=== PATIENT | female | born 1945 | race Caucasian/White ===

== ENCOUNTER → 2016-05-09 | Outpatient (CLI) | payer OTHER ==
[~2016-05-09] MED LIST: ASPI81TA28 PO; CHOL200027 PO; CRS10 PO; CZR50 PO; EYE HEALTH PO; HYDR12.55 PO; LUTE1CAP4 PO; METO50TA7 PO; MULT-506 PO; OMEG10007 PO; POTA1080 PO; TAMO20TA47 PO
--- NOTE | 2016-05-09 14:25 | MAMMOGRAPHY REPORT ---
BILATERAL DIGITAL DIAGNOSTIC MAMMOGRAM TOMOSYNTHESIS WITH CAD: 05/09/2016 CLINICAL HISTORY: 70-year-old woman with a personal history of left breast cancer status post lumpec jasvir 11/26/2014 and radiation therapy presents for annual bilateral mammography and repeat evaluatio n of the post surgical changes in the left breast. TECHNIQUE: Bilateral CC and MLO 2-D digital and tomosynthesis images, spot magnification left CC and ML views were obtained. Current study was also evaluated with a Computer Aided Detection (CAD) sys tem. COMPARISON: Comparison is made to exams dated: 11/04/2015 mammogram, 04/29/2015 mammogram, 10/25/2014 ma mmogram, and 10/25/2014 ultrasound biopsy - [facility]. BREAST COMPOSITION: There are scattered areas of fibroglandular density in both breasts. FINDINGS: There is expected architectural distortion and suspected surgical clips in the 12:00 poste rior left breast, at the site of prior lumpectomy. There are a few stable benign-appearing rim calc ifications and punctate microcalcifications in the breasts. No new suspicious mass, architectural d istortion or cluster of microcalcifications is seen. IMPRESSION: ACR BI-RADS CATEGORY 2: BENIGN Stable mammographic appearance of the breasts, including posttreatment changes within the left breas t. There is no mammographic evidence of malignancy. A 1 year screening mammogram is recommended. T he patient has been verbally notified of the results. Approximately 10% of breast cancers are not detected with mammography. A negative mammographic repor t should not delay biopsy if a clinically suggestive mass is present. Edith Calix M.D. ay/:05/09/2016 09:47:57 Pot Maker: Yenifer TEJADA(Karen)(Jesenia), [facility] letter sent: Normal 04/23 BI-RADS Code: ACR BI-RADS Category 2: Benign
== END | disposition home or self-care (01) ==
LOC: C.MAMM 08:19
PROVIDERS: ATTEND Surgery
DX: Z08 Encounter for follow-up examination after completed treatment for malignant neoplasm (principal); Z85.3 Personal history of malignant neoplasm of breast; Z92.3 Personal history of irradiation

== ENCOUNTER → 2016-10-17 | Outpatient (CLI) | payer OTHER ==
[2016-10-17 14:13] VITALS: BP 113/74; PULSE 73; TEMP 36.8; O2SAT 97
--- NOTE | 2016-10-17 15:06 | Radiation Oncology Follow-Up ---
Radiation Oncology Follow-Up Date of Visit Oct 17, 2016. Reason For Visit Annual follow-up Radiation Completion Date finished 01-25-2015 using accelerated partial breast treatment Diagnosis (1) Breast cancer Status: Resolved Onset Date: 10/25/2014 Histology Subtype: ductal Stage: l (A) Permanent Comment: Left breast, invasive ductal carcinoma, grade 1, no LVSI, ER /OK positive, Her2 negative, [id number], stage IA Ultrasound-guided biopsy 10/25/2014 Status post lumpectomy and sentinel lymph node biopsy 11/26/2014 BRCA testing negative Status post completion of radiation therapy 01/25/2015 received 3850 cGy utilizing accelerated partial breast treatment. Last Edited By: Mallika Multani on Jan 28, 2015 14:40 History of Present Illness Ms. Lucia is a 70-year-old postmenopausal female who recently presented with an abnormality found on mammography. She recently had a mammogram completed on 10/15/2014 which revealed a 5 mm isoechoic non-circumscribed mass in the 11 o'clock position in the left breast. Dedicated ultrasonography was completed with biopsy on 10/25/2014 and revealed grade 1 invasive ductal carcinoma with no lymphovascular space invasion. The tumor was estrogen receptor and progesterone receptor positive and HER-2 negative. The patient had BRCA testing completed on 10/25/2014 which was negative. She met with Dr. Brown and elected for lumpectomy with adjuvant radiation therapy. She underwent wide local excision and sentinel lymph node biopsy on 11/26/2014 which revealed no residual carcinoma in the left breast a negative sentinel lymph node. Dr. Brown did discuss treatment options with the patient and recommended adjuvant radiation therapy. At this point they have not made a decision about anti- hormonal therapy is the patient's sister to have issues with the medication and did have a stroke. We are now seeing the patient in consultation for discussion of adjuvant radiation therapy. She return to our office for CT simulation and was found to be a candidate for accelerated partial breast treatment. Radiation was completed 01/25/2015 she received 3850 cGy. Interim History She's been doing well over this past year. She denies any changes to her breast. She has noted no masses or tenderness and no change of the axilla. She 's had no swelling of her arm. She continues on tamoxifen. She does feel that since starting medication she has flushing of the face and sensitivity of the skin of her face. We did discuss skin products. She is using oil of olay. We discussed that some products may cause skin irritation. In starting the tamoxifen she notes very mild and slight vaginal discharge. This is clear. There is no vaginal bleeding. We discussed at her last visit that she should' ve follow-up with gynecology or her PCP. She stated that she has an appointment to see her primary care physician in November and will discuss this with her. Allergies Coded Allergies: Raloxifene (Unverified Allergy, Unknown, HIVES, 05/09/14) Sulfamethoxazole w/Trimethoprim (Unverified Allergy, Unknown, RASH, ) Home Medications Scheduled Aspirin (Aspirin Ec), 81 MG PO DAILY Cholecalciferol (Vitamin D-3), 1 TAB PO DAILY Fish Oil (Casco-3), 1 CAP PO DAILY Hydrochlorothiazide (Hydrochlorothiazide), 1 TAB PO DAILY Losartan Potassium (Cozaar *), 100 MG PO QAM Lutein (Hm Lutein), 1 CAP PO DAILY Metoprolol Succ (Toprol Xl) (Toprol-Xl), 50 MG PO HS Multivitamin (Multivitamin), 1 TAB PO DAILY Potassium Citrate (Urocit-K), 15 MEQ PO DAILY Rosuvastatin Calcium (Crestor *), 10 MG PO QAM Tamoxifen (Nolvadex), 20 MG PO DAILY [Eye Health ], 2 CAP PO DAILY Review of Systems Gastrointestinal: Symptoms: WNL Oral: Symptoms: No Problems Respiratory: Symptoms: WNL Urinary: Symptoms: WNL Skin: Other Skin Symptoms: "redness in face " and rest of skin is sensative " Breast: Right Upper Arm Measurement: 31.5 Right Mid Arm Measurement: 25.0 Right Wrist Measurement: 16.5 Left Upper Arm Measurement: 31.0 Left Mid Arm Measurement: 24.0 Left Wrist Measurement: 16.0 Arm Dominence: Right Patient Cosmetic Evaluation: Excellent Staff Cosmetic Evalaluation: Excellent Physical Exam Vital Signs Date Time Temp Pulse Resp B/P (MAP) Pulse Ox O2 Delivery O2 Flow Rate FiO2 10/17/16 14:13 36.8 73 16 113/74 97 Pain: Side: Bilateral Patient Pain Scale: 0 - 10 Initial Pain Intensity: 0.0 Fatigue: None General Appearance: no apparent distress Eyes: normal inspection, EOMI ENT: normal ENT inspection, hearing grossly normal Neck: no adenopathy, thyroid normal Respiratory/Chest: lungs clear, no respiratory distress, no accessory muscle use Breast: Breast examination reveals well-healed incisions of the left breast. There is dense fibrous tissue especially noted above the incision. There are no masses or tenderness and no axillary adenopathy. She has no telangiectasis. There are no skin retractions or nipple changes. Using the [place] score cosmesis she has a good outcome. The right breast showed no masses or tenderness and no axillary adenopathy. Cardiovascular: regular rate, rhythm, no gallop, no murmur Abdomen: non tender, soft Extremities: no pedal edema Neurologic/Psychiatric: no motor/sensory deficits, alert, normal mood/affect Skin: warm/dry Additional Studies Patient: DASHA LUCIA [facility] Rec: [id number] Address1: [facility] [address] [facility] Address2: Acct ID: [id number] Date: 1945 Sex: F Ref Phy: Kennedy Brown M.D. Att Phy: Mallika Multani PA-C Rona Phy: Suleman Kraft M.D. Inter Phy: Edith Calix MD [facility] Zip: [place] [address] SC: [id number] Report #: [id number] Core Blower Operator: CHAO Diagnosis: 6 MONTH F/U BILATERAL Service Date: 05/09/16 MNE: [id number] Ordering Dr: Mallika Multani PA-C CC: Mallika Multani PA-C CONF: DICTATED BY: Edith Calix MD MAMMOGRAPHY REPORT BILATERAL DIGITAL DIAGNOSTIC MAMMOGRAM TOMOSYNTHESIS WITH CAD: 05/09/2016 CLINICAL HISTORY: 70-year-old woman with a personal history of left breast cancer status post lumpectomy 11/26/2014 and radiation therapy presents for annual bilateral mammography and repeat evaluation of the post surgical changes in the left breast. TECHNIQUE: Bilateral CC and MLO 2-D digital and tomosynthesis images, spot magnification left CC and ML views were obtained. Current study was also evaluated with a Computer Aided Detection (CAD) system. COMPARISON: Comparison is made to exams dated: 11/04/2015 mammogram, 04/29/2015 mammogram, 10/25/2014 mammogram, and 10/25/2014 ultrasound biopsy - [facility]. BREAST COMPOSITION: There are scattered areas of fibroglandular density in both breasts. FINDINGS: There is expected architectural distortion and suspected surgical clips in the 12:00 posterior left breast, at the site of prior lumpectomy. There are a few stable benign-appearing rim calcifications and punctate microcalcifications in the breasts. No new suspicious mass, architectural distortion or cluster of microcalcifications is seen. IMPRESSION: ACR BI-RADS CATEGORY 2: BENIGN Stable mammographic appearance of the breasts, including posttreatment changes within the left breast. There is no mammographic evidence of malignancy. A 1 year screening mammogram is recommended. The patient has been verbally notified of the results. Approximately 10% of breast cancers are not detected with mammography. A negative mammographic report should not delay biopsy if a clinically suggestive mass is present. Edith Calix M.D. ay/:05/09/2016 09:47:57 [employer] Range Feeder: Yenifer TEJADA(Karen)(Jesenia), [facility] letter sent: Normal 1/2 BI-RADS Code: ACR BI-RADS Category 2: Benign Dictated by: Edith Calix MD Signed by: Edith Calix MD Assessment & Plan Plan: Continue annual mammography. Continue regular follow-up with Dr. Brown. She continues on tamoxifen. She'll be seeing in November. She is due for pelvic examination and Pap smear. Of asked her to discuss with her the vaginal discharge. She is aware of the potential side effects of tamoxifen. We discussed that she may need to have an ultrasound to further investigate the vaginal discharge. We asked her to return to our office in 1 year. She may call if she has D questions or concerns. She was also instructed on gentle massage that may help the area of fibrous tissue. Total Time In Follow-Up I spent 20 minutes speaking to the patient and performing examination. I spent 15 minutes reviewing information and completing this note. Copy To Kennedy Brown M.D.; Suleman Kraft M.D. Problem Qualifiers (1) Breast cancer: Breast location: upper inner quadrant of breast Estrogen receptor status: positive Patient sex: female Laterality: left Qualified Codes: C50.212 - Malignant neoplasm of upper-inner quadrant of left female breast; Z17.0 - Estrogen receptor positive status [ER+]
== END | disposition home or self-care (01) ==
LOC: C.ONC 13:57
PROVIDERS: ATTEND Physician Assistant Medical
DX: Z08 Encounter for follow-up examination after completed treatment for malignant neoplasm (principal); Z92.3 Personal history of irradiation; Z85.3 Personal history of malignant neoplasm of breast

== ENCOUNTER → 2016-12-27 | Outpatient (CLI) | payer OTHER ==
--- NOTE | 2016-12-27 09:25 | DIAGNOSTIC IMAGING REPORT ---
ABDOMEN LIMITED (US) HISTORY: Pain. Nausea. OTHER SPECIFIED ABD FINDINGS OF BLOOD CHEMISTRY. COMPARISON: 03/08/2014 FINDINGS: Pancreas: The pancreas demonstrates a normal echotexture. Liver: Fatty infiltration. Gallbladder: No gallbladder wall thickening. No gallstones. CBD: 3 mm Right kidney: 3 cm cyst slightly minimal increase in the prior study. IMPRESSION: Fatty infiltration of liver. Right renal cyst. Otherwise normal study. The above report was generated using voice recognition software. It may contain grammatical, syntax or spelling errors. Electronically signed by: Alberto Keith M.D. 12/27/2016 9:23 AM Dictated Date/Time: 12/27/2016 9:21 AM
== END | disposition home or self-care (01) ==
LOC: C.ULTR 08:47
PROVIDERS: ATTEND Internal Medicine Gastroenterology
DX: R79.89 Other specified abnormal findings of blood chemistry (principal); N20.0 Calculus of kidney; N29 Other disorders of kidney and ureter in diseases classified elsewhere

== ENCOUNTER → 2016-12-27 | Outpatient (CLI) | payer OTHER ==
--- NOTE | 2016-12-27 09:28 | DIAGNOSTIC IMAGING REPORT ---
KUB CLINICAL HISTORY: N20.0 [id number] nephrocalcinosis COMPARISON STUDY: 03/26/2015 Findings: Unchanging multiple left renal calcifications. The 10th Small lower pole right renal calcifications. Several pelvic calcifications unchanged. Status post right hip arthroplasty. IMPRESSION: 1. Bilateral renal nephrocalcinosis. 2. These are unchanged in the left. 3. 2 small calcifications lower aspect right kidney potentially are new The above report was generated using voice recognition software. It may contain grammatical, syntax or spelling errors. Electronically signed by: Alberto Keith M.D. 12/27/2016 9:27 AM Dictated Date/Time: 12/27/2016 9:24 AM
== END | disposition home or self-care (01) ==
LOC: C.RAD 08:52
PROVIDERS: ATTEND Urology
DX: N20.0 Calculus of kidney (principal); N29 Other disorders of kidney and ureter in diseases classified elsewhere

== ENCOUNTER → 2017-07-30 | Outpatient (CLI) | payer OTHER ==
[~2017-07-30] MED LIST changes: -METO50TA7 PO; +METO50TA8 PO; -TAMO20TA47 PO; +TAMO20TA9 PO
--- NOTE | 2017-08-01 07:56 | MAMMOGRAPHY REPORT ---
BILATERAL DIGITAL SCREENING MAMMOGRAM TOMOSYNTHESIS WITH CAD: 07/30/2017 CLINICAL HISTORY: Routine screening. Patient has no complaints. TECHNIQUE: Breast tomosynthesis in addition to standard 2D mammography was performed. Current study was also evaluated with a Computer Aided Detection (CAD) system. COMPARISON: Comparison is made to exams dated: 05/09/2016 mammogram, 11/04/2015 mammogram, 04/29/2015 ma mmogram, 10/25/2014 mammogram, 10/25/2014 ultrasound biopsy, and 10/15/2014 ultrasound - [facility]. BREAST COMPOSITION: The tissue of both breasts is heterogeneously dense, which may obscure small mas ses. FINDINGS: There are diffuse scattered and grouped microcalcifications in the right breast, stable com pared to prior exams. Expected architectural distortion and surgical clips in the 12:00 posterior le ft breast, at the site of prior lumpectomy. A linear scar marker overlies the superior left breast. No new suspicious mass, architectural distortion or cluster of new, suspicious microcalcifications i s seen. IMPRESSION: ACR BI-RADS CATEGORY 1: NEGATIVE There is no mammographic evidence of malignancy. A 1 year screening mammogram is recommended. The pa tient will receive written notification of the results. Approximately 10% of breast cancers are not detected with mammography. A negative mammographic report should not delay biopsy if a clinically suggestive mass is present. Edith Calix M.D. ay/:07/30/2017 16:52:13 Buttonhole Facer: Janette MILLER)(Jesenia), [facility] letter sent: Normal 1/2 BI-RADS Code: ACR BI-RADS Category 1: Negative
== END | disposition home or self-care (01) ==
LOC: C.MAMM 16:22
PROVIDERS: ATTEND Internal Medicine
DX: Z12.31 Encounter for screening mammogram for malignant neoplasm of breast (principal); Z85.3 Personal history of malignant neoplasm of breast

== ENCOUNTER 2024-07-15 19:55 | Observation (INO) ==
--- NOTE | 2024-07-15 20:21 | Emergency Department Note ---
Impression & Plan Acute hypoxic respiratory failure, Shortness of breath, Atelectasis ED Provider Note NAME: DASHA LUCIA AGE: 78 SEX: F : 1945 ARRIVES VIA: Walk-In INFORMANT: Patient ED PROVIDER(S): Juan Carlos Mathur DO CHIEF COMPLAINT: Shortness of breath HPI: Patient is a 78-year-old male with a past medical history of hypertension, hyperlipidemia, breast cancer who just had a right shoulder surgery on Saturday who presents ER for shortness of breath which has been present since the surgery. Patient presents tonight as he got significantly worse today. She denies any cough or congestion. No belly pain. No nausea, vomiting, or diarrhea. No dysuria, urgency, or frequency. No other exacerbating or remitting factors. ADDITIONAL HISTORY OBTAINED: Son is present at bedside and provides additional history and notes that this got significantly worse today. Chronic Medical/Social Conditions Affecting Care: Per HPI PAST MEDICAL HISTORY:See Below PAST SURGICAL HISTORY:See Below FAMILY HISTORY:See Below SOCIAL HISTORY:See Below HOME MEDICATIONS:See Below ALLERGIES:See Below VITALS:See Below PHYSICAL EXAMINATION: GENERAL: Sitting up in bed, alert, dyspneic with conversation, disheveled EYE EXAM: normal conjunctiva. PERRL and EOM's grossly intact. OROPHARYNX: no exudate, no erythema, lips, buccal mucosa, and tongue normal and mucous membranes are moist NECK: supple, no nuchal rigidity, no adenopathy, non-tender LUNGS: Clear to auscultation. Normal chest wall mechanics HEART: no murmurs, S1 normal and S2 normal ABDOMEN: abdomen soft, non-tender, normo-active bowel sounds, no masses, no rebound or guarding. BACK: Back is symmetrical on inspection and there is no deformity, no midline tenderness, no CVA tenderness. SKIN: no rashes and no bruising UPPER EXTREMITIES: Right upper extremity is in shoulder immobilizer. Radial pulse are 2 out of 4 bilaterally LOWER EXTREMITIES: No pitting edema. Calves equal bilaterally NEURO EXAM: Normal sensorium, cranial nerves II-XII grossly intact, normal speech, no gross weakness of arms, no gross weakness of legs. MEDICAL DECISION MAKING: Patient is a 78-year-old female who presents ER for the above-stated complaint. IV was established and blood work was obtained. No history of asthma or COPD. Shortness of breath has been present since Saturday when she had a right shoulder surgery. Labs show no significant leukocytosis or anemia. INR unremarkable. BMP with mild hyponatremia at 134. LFTs and bilirubin was unremarkable. Mag was normal. Troponin was negative with symptoms have been present for greater than 6 hours not indicative of ACS. EKG was unremarkable. Patient was given neb treatments and placed on 2 L nasal cannula due to hypoxia at 88% on room air. Chest x-ray with subtle opacities at the bases and CT angio of the chest shows no PEs with atelectasis and no focal pneumonia. Patient was updated bedside discussed with the hospitalist admitted for further workup. Consults/Care Managements Discussions: Per [facility] Triage Nursing notes reviewed. Limited review of prior medical records performed Vital Signs: reviewed and remarkable for hypoxic Differential diagnosis: Differential diagnoses includes but is not limited to pneumonia, bronchitis, COPD/Asthma exacerbation, pneumothorax, pulmonary embolism, congestive heart failure, acute coronary syndrome ER treatment provided: See below Diagnostics interpreted by me include EKG and cardiac monitoring as listed below: -Cardiac Monitoring: An order was placed for continuous cardiac monitoring. The monitor shows a rate of 90 with sinus rhythm. -ECG: Sinus rhythm rate of 96 Normal axis No PVCs QTc 454 -Laboratory studies:Interpreted by me as stated above in MDM and shown below. Imaging studies: Xrays: As interpreted by me: Portable AP upright 1 view of the chest shows no focal infiltrate CTs show: CT angio of the chest shows no PEs Procedures:none Critical Care: I have personally spent 35 minutes of critical care time in the direct management of this patient. This includes bedside care, interpretation of diagnostic studies, and testing, discussion with consultants, patient, and family members, and other required patient management activities. This 35 minutes is in excess of all separately billable procedures. Past Med/Surg History Problem List (Updated 07/15/24 @ 22:56 by Juan Carlos Mathur DO) Atelectasis (Acute) Shortness of breath (Acute) Acute hypoxic respiratory failure (Acute) Acute hypoxic respiratory failure Aspiration pneumonia Status post reverse total replacement of right shoulder (~06/2024) Encounter for pre-operative examination Rotator cuff arthropathy of right shoulder Leg pain, left (Acute) Left leg swelling (Acute) Abdominal pain, left lower quadrant (Acute) Hyperlipemia (Chronic) Hypertension (Chronic) Medical History Arthritis Hearing deficit mild History of COVID-2019 - symptoms resolved History of kidney stones hx of and at present - no current symptoms HTN (hypertension) HX: breast cancer 2015 > stage 1 per pt > sx and radiation > no current issues Hyperlipemia Kidney cysts right Medullary sponge kidney Follows with urology Protruded lumbar disc Surgical History History of bunionectomy History of cataract surgery bilat History of colonoscopy History of lithotripsy History of right hip replacement History of tonsillectomy Hx of lumpectomy left with marker Family History Other No significant family history Social History Smoking Status: Former smoker Second Hand Exposure: No; Do You Dip or Chew Tobacco: No; Hx Alcohol Use: Yes Alcohol type: wine Hx Substance Use: No Preferred Language: Azeri Communication Ability: Effective Drum Puller Required: No Beliefs That Will Affect Care: None Current Living Situation: Alone Feels Safe at Home: Yes Assistive Devices: Glasses Allergies Allergies Allergy/AdvReac Type Severity Reaction Status Date / Time Bactrim Allergy Unknown RASH Unverified 05/09/14 06:51 raloxifene Allergy Unknown HIVES Verified 07/15/24 20:30 sulfamethoxazole Allergy Unknown RASH Verified 07/15/24 20:30 trimethoprim Allergy Unknown RASH Verified 07/15/24 20:30 Home Meds Home Medications Medication Instructions Recorded Confirmed cholecalciferol (vitamin D3) 50 5,000 unit PO QAM 03/26/18 07/15/24 mcg (2,000 unit) capsule (Vitamin D3) metoprolol succinate 50 mg 50 mg PO HS 03/26/18 07/15/24 tablet,extended release 24 hr multivitamin 1 tab PO QAM 03/26/18 07/15/24 omega 9-cdw-dzz-fish oil 1,000 mg 1 cap PO QAM 03/26/18 07/15/24 (120 mg-180 mg) capsule (Fish Oil) rosuvastatin 10 mg tablet 10 mg PO 3XWK 03/26/18 07/15/24 vit A 300 mcg-C 200 mg-E 27 1 tab PO QAM 03/26/18 07/15/24 mg-lutein 2 mg and minerals tablet ([facility] Lutein) coenzyme Q10 100 mg capsule (Co 100 mg PO DAILY 06/16/24 07/15/24 Q-10) losartan 100 1 tab PO QAM 06/16/24 07/15/24 mg-hydrochlorothiazide 12.5 mg tablet Previous Rx's Medication Instructions Recorded cefadroxil 500 mg capsule 500 mg PO BID 10 days #20 caps 07/13/24 oxycodone 5 mg tablet 5 mg PO Q6H PRN pain #30 tabs 07/13/24 Results & Data (ED) Vital Signs Vital Signs - 24 hr 07/15/24 19:58 07/15/24 20:07 07/15/24 20:07 Temperature 36.8 C Temperature Source Temporal Artery Scan Pulse Rate 99 H Pulse Rate [Apical] 98 H Respiratory Rate 26 H 24 Respiratory Effort / Characteristics Non-Labored Spontaneous Spontaneous Labored Short of Breath Respiratory Depth Normal Respiratory Pattern Blood Pressure 180/97 H Blood Pressure [Left Arm] 182/92 H Blood Pressure Mean 124 Blood Pressure Mean [Left Arm] 122 Blood Pressure Position [Left Arm] Semi-fowlers Pulse Oximetry 95 89 L 95 Oxygen Delivery Method Room Air Room Air Nasal Cannula Oxygen Flow Rate 2 Sepsis Recent Fever Within 48 Hours No Sepsis New/Unexplained Change in Mental Status No Sepsis Action Taken by Nursing No Action Required Oxygen Flow Rate - Titration 2 Pulse Oximetry Post Tiitration 94 07/15/24 20:58 07/15/24 20:59 07/15/24 22:00 Temperature Temperature Source Pulse Rate 91 H Pulse Rate [Apical] 90 78 Respiratory Rate 26 H 21 Respiratory Effort / Characteristics Spontaneous Short of Breath Non-Labored Spontaneous Respiratory Depth Normal Respiratory Pattern Regular Regular Blood Pressure Blood Pressure [Left Arm] 152/68 H 116/56 L Blood Pressure Mean Blood Pressure Mean [Left Arm] 96 76 Blood Pressure Position [Left Arm] Semi-fowlers Semi-fowlers Pulse Oximetry 93 97 Oxygen Delivery Method Nasal Cannula Nasal Cannula Oxygen Flow Rate 2 2 Sepsis Recent Fever Within 48 Hours Sepsis New/Unexplained Change in Mental Status Sepsis Action Taken by Nursing Oxygen Flow Rate - Titration Pulse Oximetry Post Tiitration Laboratory Data 07/15/24 20:10 07/15/24 20:10 Lab Results 07/15/24 07/15/24 Range/Units 20:10 20:21 WBC 9.69 (4.8-10.8) K/ul RBC 4.20 (4.20-5.40) M/uL Hgb 12.8 (12.0-16.0) g/dl POC Hgb 11.2 L (12.0-16.0) g/dl Hct 37.9 (37.0-47.0) % POC Hct 33 L (37-47) % MCV 90.2 (80.0-100.0) fL MCH 30.5 (25.0-34.0) pg MCHC 33.8 (32.0-36.0) g/dL RDW Std Deviation 43.9 (36.4-46.3) fL RDW Coeff of [place] 13.4 (11.5-14.5) % Plt Count 296 (130-400) K/uL MPV 9.5 (9.4-12.4) fL Immature Gran % (Auto) 0.4 % Neut % (Auto) 64.9 % Lymph % (Auto) 22.6 % Casey % (Auto) 9.2 % Eos % (Auto) 2.1 % Baso % (Auto) 0.8 % Neut # (Auto) 6.29 (1.40-6.50) K/uL Lymph # (Auto) 2.19 (1.20-3.40) K/uL Casey # (Auto) 0.89 H (0.11-0.59) K/uL Eos # (Auto) 0.20 (0.00-0.50) K/uL Baso # (Auto) 0.08 (0.00-0.20) K/uL Immature Gran # (Auto) 0.04 (0.01-0.20) K/uL PT 9.9 (9.0-12.0) Seconds INR 0.9 (0.9-1.1) APTT 24 (21-31) Seconds PTT Ratio 0.9 POC Sodium 135 (135-144) mmol/L Sodium 134 L (136-145) mmol/L POC Potassium 3.8 (3.3-5.0) mmol/L Potassium 4.0 (3.5-5.1) mmol/L POC Chloride 98 L (101-112) mmol/L Chloride 98 (98-107) mmol/L Carbon Dioxide 29 (21-32) mmol/L POC Total CO2 27 (24-31) mmol/L Anion Gap 7 (3-11) POC Anion Gap 15.0 L (16-25) mmol/L POC BUN 25 H (7-18) mg/dl BUN 26 H (6-23) mg/dl Creatinine 0.78 (0.6-1.2) mg/dl POC Creatinine 0.8 (0.6-1.3) mg/dl Est Cr Clr Drug Dosing 51.4 ml/min eGFR 78.18 BUN/Creatinine Ratio 33.3 H (10-20) Glucose 136 H (70-99(Fasting)) mg/dl POC Glucose (other) 130 H (70-99) mg/dl Calcium 10.1 (8.6-10.3) mg/dl POC Ioniz Calcium Jose 1.17 (1.12-1.32) mmol/l Magnesium 2.0 (1.7-2.4) mg/dl Total Bilirubin 0.5 (0.2-1.0) mg/dl AST 27 (13-39) U/L ALT 16 (7-52) U/L Alkaline Phosphatase 94 (34-104) U/L Troponin I High Sens 8.5 (0-14) pg/ml Total Protein 7.6 (6.0-8.3) gm/dl Albumin 4.3 (3.4-5.0) gm/dl Globulin 3.3 (2.5-4.0) gm/dl Albumin/Globulin Ratio 1.3 (0.9-2) Administered Medications Ampicillin Sodium/Sulbactam Sodium (Unasyn) 3,000 mg in 100 mls @ 200 mls/hr IV NOW STA Stop: 07/15/24 22:51 Last Admin: 07/15/24 22:46 Dose: 200 mls/hr Documented By: LUISAP Discontinued Medications Albuterol (Albuterol 0.083% Nebu Soln 3 Ml Vial) 2.5 mg NEB NOW STA; Protocol Stop: 07/15/24 20:19 Last Admin: 07/15/24 20:41 Dose: 2.5 mg Documented By: МАРИНА Ioversol (Optiray 320 125ml) 119 ml IV ONCE ONE Stop: 07/15/24 20:32 Last Admin: 07/15/24 20:32 Dose: 119 ml Documented By: PLW Imaging Data Radiologist's Impression: Chest X-Ray 07/15/24 20:01 Exam(s): XR CXR 1 VIEW EXAM: XR Chest, 1 View CLINICAL HISTORY: Reason for exam: Chest pain, nonspecific. TECHNIQUE: Frontal view of the chest. COMPARISON: No relevant prior studies available. FINDINGS: Lungs: Patchy densities seen in bilateral lung bases. Pleural space: Unremarkable. No pneumothorax. Heart: Unremarkable. No cardiomegaly. Mediastinum: Unremarkable. Normal mediastinal contour. Bones/joints: Right glenohumeral joint arthroplasty. No acute fracture. IMPRESSION: Patchy densities in the lung bases which could be from atelectasis or pneumonia Electronically signed by: Keaton Carias MD 07/15/24 22:01 PM Chest CTA 07/15/24 20:17 Exam(s): CTA CHEST IV Amt: 119 ml opti 320 EXAM: CT Angiography Chest With Intravenous Contrast CLINICAL HISTORY: PE. TECHNIQUE: Axial computed tomographic angiography images of the chest with intravenous contrast. CTDI is 37 mGy and DLP is 713.14 mGy-cm. Automated exposure control was utilized for the study. A dose lowering technique was utilized adhering to the principles of ALARA. 3D and MIP reconstructed images were created and reviewed. COMPARISON: CXR 07-15-2024. FINDINGS: Pulmonary arteries: No pulmonary embolism. Aorta: No thoracic aortic aneurysm or dissection. Lungs: Right lower lobe platelike atelectasis. Mild lingular bibasilar atelectasis. Pulmonary vessels are top normal in caliber. Pleural space: No pleural effusion. No pneumothorax. Heart: Mild cardiomegaly. No pericardial effusion. No evidence of RV dysfunction. Bones/joints: Status post right shoulder bipolar arthroplasty with surrounding infiltration and scattered gas consistent with recent surgery. No acute fracture. Degenerative changes of the spine. Soft tissues: Skin elsa and subcutaneous gas and infiltration extent of the right shoulder. Lymph nodes: Unremarkable. No enlarged lymph nodes. IMPRESSION: No pulmonary embolism. Mild cardiomegaly. Borderline pulmonary vascular congestion. Bibasilar atelectasis. No definite lobar pneumonia. Status post recent right shoulder bipolar arthroplasty. Electronically signed by: Dariusz Storm M.D. 07/15/24 21:45 PM Discharge Plan Visit Data Chief Complaint: Shortness of Breath/Dyspnea Stated Complaint: SOB POST SURGERY ED Provider: Juan Carlos Mathur Discharge Problem: Acute hypoxic respiratory failure, Shortness of breath, Atelectasis Forms Stand Alone Forms: My [facility] Prescriptions Prescriptions: No Action multivitamin Tablet 1 tab PO QAM metoprolol succinate 50 mg tablet extended release 24 hr 50 mg PO HS rosuvastatin 10 mg tablet 10 mg PO 3XWK Patient Comments: M/W/F Rx Instructions: MONDAYS, WEDNESDAYS, AND FRIDAYS [facility] Lutein 1,000 unit-200 mg-60 unit-2 mg Tablet 1 tab PO QAM cholecalciferol (vitamin D3) [Vitamin D3] 2,000 unit Capsule 5,000 unit PO QAM omega 2-nos-hys-fish oil [Fish Oil] 1,000 mg (120 mg-180 mg) Capsule 1 cap PO QAM losartan-hydrochlorothiazide 100-12.5 mg Tablet 1 tab PO QAM coenzyme Q10 [Co Q-10] 100 mg Capsule 100 mg PO DAILY cefadroxil 500 mg capsule 500 mg PO BID 10 Days Qty: 20 0RF oxycodone 5 mg tablet 5 mg PO Q6H PRN (Reason: pain) Qty: 30 0RF Referrals Referrals: Suleman Kraft [Primary Care Provider] -
[2024-07-15 20:25] LABS: Basophils # (auto) 0.08 K/uL (0.00-0.20); Basophils % (auto) 0.8 %; Eosinophils % (auto) 2.1 %; Hematocrit (blood only) 37.9 % (37.0-47.0); Hemoglobin 12.8 g/dl (12.0-16.0); Immature Granulocytes # (auto) 0.04 K/uL (0.01-0.20); Immature Granulocytes % (auto) 0.4 %; Lymphocytes # (auto) 2.19 K/uL (1.20-3.40); Lymphocytes % (auto) 22.6 %; Mean Corpuscular Hemoglobin 30.5 pg (25.0-34.0); Mean Corpuscular Hgb Conc 33.8 g/dL (32.0-36.0); Mean Corpuscular Volume 90.2 fL (80.0-100.0); Mean Platelet Volume 9.5 fL (9.4-12.4); Monocytes # (auto) 0.89 K/uL (0.11-0.59); Monocytes % (auto) 9.2 %; Neutrophils # (auto) 6.29 K/uL (1.40-6.50); Neutrophils % (auto) 64.9 %; Platelet Count 296 K/uL (130-400); RDW Coefficient of Variation 13.4 % (11.5-14.5); RDW Standard Deviation 43.9 fL (36.4-46.3); White Blood Count 9.69 K/ul (4.8-10.8)
[2024-07-15] MEDS: OPTIRAY 320 125ml IV ONE (20:32)
[2024-07-15 20:33] LABS: iSTAT Creatinine 0.8 mg/dl (0.6-1.3); iSTAT Hemoglobin 11.2 g/dl (12.0-16.0); iSTAT Ionized Calcium 1.17 mmol/l (1.12-1.32); iSTAT Potassium 3.8 mmol/L (3.3-5.0)
[2024-07-15] MEDS: ALBUTEROL 0.083% NEBU SOLN 3 ML VIAL NEB STA (20:41)
[2024-07-15 20:43] LABS: Albumin Globulin Ratio 1.3 (0.9-2); Albumin Level 4.3 gm/dl (3.4-5.0); BUN Creatinine Ratio 33.3 (10-20); Bilirubin,Total 0.5 mg/dl (0.2-1.0); Calcium 10.1 mg/dl (8.6-10.3); Creatinine Clr Calc Pharmacy 51.4 ml/min; Globulin 3.3 gm/dl (2.5-4.0); Total Protein 7.6 gm/dl (6.0-8.3)
[2024-07-15 20:51] LABS: Troponin I High Sensitivity 8.5 pg/ml (0-14)
[2024-07-15 21:10] LABS: INR 0.9 (0.9-1.1); Partial Thromboplastin Ratio 0.9; Partial Thromboplastin Time 24 Seconds (21-31); Prothrombin Time 9.9 Seconds (9.0-12.0)
--- NOTE | 2024-07-15 21:46 | CT Scan Report ---
Exam(s): CTA CHEST IV Amt: 119 ml opti 320 EXAM: CT Angiography Chest With Intravenous Contrast CLINICAL HISTORY: PE. TECHNIQUE: Axial computed tomographic angiography images of the chest with intravenous contrast. CTDI is 37 mGy and DLP is 713.14 mGy-cm. Automated exposure control was utilized for the study. A dose lowering technique was utilized adhering to the principles of ALARA. 3D and MIP reconstructed images were created and reviewed. COMPARISON: CXR 07-15-2024. FINDINGS: Pulmonary arteries: No pulmonary embolism. Aorta: No thoracic aortic aneurysm or dissection. Lungs: Right lower lobe platelike atelectasis. Mild lingular bibasilar atelectasis. Pulmonary vessels are top normal in caliber. Pleural space: No pleural effusion. No pneumothorax. Heart: Mild cardiomegaly. No pericardial effusion. No evidence of RV dysfunction. Bones/joints: Status post right shoulder bipolar arthroplasty with surrounding infiltration and scattered gas consistent with recent surgery. No acute fracture. Degenerative changes of the spine. Soft tissues: Skin elsa and subcutaneous gas and infiltration extent of the right shoulder. Lymph nodes: Unremarkable. No enlarged lymph nodes. IMPRESSION: No pulmonary embolism. Mild cardiomegaly. Borderline pulmonary vascular congestion. Bibasilar atelectasis. No definite lobar pneumonia. Status post recent right shoulder bipolar arthroplasty. Electronically signed by: Dariusz Storm M.D. 07/15/24 21:45 PM
--- NOTE | 2024-07-15 22:02 | XRay Report ---
Exam(s): XR CXR 1 VIEW EXAM: XR Chest, 1 View CLINICAL HISTORY: Reason for exam: Chest pain, nonspecific. TECHNIQUE: Frontal view of the chest. COMPARISON: No relevant prior studies available. FINDINGS: Lungs: Patchy densities seen in bilateral lung bases. Pleural space: Unremarkable. No pneumothorax. Heart: Unremarkable. No cardiomegaly. Mediastinum: Unremarkable. Normal mediastinal contour. Bones/joints: Right glenohumeral joint arthroplasty. No acute fracture. IMPRESSION: Patchy densities in the lung bases which could be from atelectasis or pneumonia Electronically signed by: Keaton Carias MD 07/15/24 22:01 PM
--- NOTE | 2024-07-15 22:14 | History & Physical Report ---
Date of Service July 15, 2024 Assessment & Plan (1) Aspiration pneumonia: (2) Acute hypoxic respiratory failure: (3) Status post reverse total replacement of right shoulder: Plan Patient is a 78-year-old female with past medical history of hypertension, hyperlipidemia, breast cancer s/p lumpectomy and radiation right shoulder rotator cuff tear s/p shoulder replacement 07/13. She presented to the ED due to dyspnea on exertion that has been prevalent since her procedure and worsening tonight. She was found to have aspiration pneumonia of her right middle lobe. She was hypoxic with ambulation noted to be 85% on room air. She is being admitted for aspiration pneumonitis requiring IV antibiotics and oxygen via nasal cannula. #aspiration pneumonitis right middle lobe/hypoxia s/p right shoulder replacement 07/[address] Valdez - suspect aspirated during procedure CXR showing patchy densities in the lung bases which could be from atelectasis versus pneumonia CTA shows no PE, mild cardiomegaly, borderline pulmonary vascular congestion, bibasilar atelectasis, no definite lobular pneumonia - personally reviewed and appears as RML aspiration pneumonia no leukocytosis, VSS noted to be 85% on room air with ambulation, 2 LNC on admission Aspiration coverage with Unasyn MRSA swab ordered, will add MRSA coverage if positive Tessalon Perles and Tylenol as needed DuoNeb 4 times daily scheduled and every 2 hours as needed incentive spirometry aspiration precautions oxygen prn for O2 <94%, wean as tolerated monitor on tele #right shoulder placement S/p right shoulder replacement 07/[address] Valdez Tylenol prn, Toradol prn, and continue prescribed Oxycodone 5mg (for pain not relieved by #1 and 2) has outpatient PT established Chronic stable diagnoses: HTNcontinue metoprolol, hold losartan and HCTZ with acute infection HLDcontinue rosuvastatin [facility] Breast cancers/p lumpectomy and radiation 2014 VTE ppx: SCDs, low risk and able to ambulate Diet: regular Dispo: med/tele Admission and Anticipated Discharge Date Admission Date: 07/15/24 History of Present Illness Chief Complaint: dyspnea Primary Care Provider: Suleman Kraft Patient is a 78-year-old female with past medical history of hypertension, hyperlipidemia, breast cancer s/p lumpectomy and radiation right shoulder rotator cuff tear s/p shoulder replacement 07/13. She presented to the ED due to dyspnea on exertion that has been prevalent since her procedure and worsening tonight. She was found to have aspiration pneumonia of her right middle lobe. She was hypoxic with ambulation noted to be 85% on room air. She is being admitted for aspiration pneumonitis requiring IV antibiotics and oxygen via nasal cannula. Patient seen at bedside with her son present. She is very pleasant. She stated she has had shortness of breath on exertion since her procedure however is much worse tonight she started to get concerned. She thought it might have been that phrenic nerve block that she received however this has been ongoing for several days. She also endorses a dry cough and wheezing at the end of her breaths. She denies any fevers, chills, dizziness, lightheadedness, chest pain. Her shoulder is doing well, she has minimal pain and it is controlled with Tylenol and ibuprofen at home. She denies past smoking history or history of previous lung disorders. She took all of her home medications today including evening medications. She was prescribed cefadroxil postop prophylaxis. She wishes to be full code. 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 She has been trying to use her incentive spirometry at home without success due to the dyspnea. DuoNeb in the ED significantly helped her symptoms, will continue. Allergies Allergy/AdvReac Type Severity Reaction Status Date / Time Bactrim Allergy Unknown RASH Unverified 05/09/14 06:51 raloxifene Allergy Unknown HIVES Verified 07/15/24 20:30 sulfamethoxazole Allergy Unknown RASH Verified 07/15/24 20:30 trimethoprim Allergy Unknown RASH Verified 07/15/24 20:30 Home Medications Medication Instructions Recorded Confirmed Type cholecalciferol (vitamin D3) 50 5,000 unit PO QAM 03/26/18 07/15/24 History mcg (2,000 unit) capsule (Vitamin D3) metoprolol succinate 50 mg 50 mg PO HS 03/26/18 07/15/24 History tablet,extended release 24 hr multivitamin 1 tab PO QAM 03/26/18 07/15/24 History omega 5-yxn-grq-fish oil 1,000 mg 1 cap PO QAM 03/26/18 07/15/24 History (120 mg-180 mg) capsule (Fish Oil) rosuvastatin 10 mg tablet 10 mg PO 3XWK 03/26/18 07/15/24 History vit A 300 mcg-C 200 mg-E 27 1 tab PO QAM 03/26/18 07/15/24 History mg-lutein 2 mg and minerals tablet ([facility] Plus Lutein) coenzyme Q10 100 mg capsule (Co 100 mg PO DAILY 06/16/24 07/15/24 History Q-10) losartan 100 1 tab PO QAM 06/16/24 07/15/24 History mg-hydrochlorothiazide 12.5 mg tablet cefadroxil 500 mg capsule 500 mg PO BID 10 days #20 caps 07/13/24 07/15/24 Rx oxycodone 5 mg tablet 5 mg PO Q6H PRN pain #30 tabs 07/13/24 07/15/24 Rx Past Med/Surg History Problem List (Updated 07/15/24 @ 22:56 by Juan Carlos Mathur DO) Atelectasis (Acute) Shortness of breath (Acute) Acute hypoxic respiratory failure (Acute) Acute hypoxic respiratory failure Aspiration pneumonia Status post reverse total replacement of right shoulder (~06/2024) Encounter for pre-operative examination Rotator cuff arthropathy of right shoulder Leg pain, left (Acute) Left leg swelling (Acute) Abdominal pain, left lower quadrant (Acute) Hyperlipemia (Chronic) Hypertension (Chronic) Medical History Arthritis Hearing deficit mild History of COVID-2019 - symptoms resolved History of kidney stones hx of and at present - no current symptoms HTN (hypertension) HX: breast cancer 2015 > stage 1 per pt > sx and radiation > no current issues Hyperlipemia Kidney cysts right Medullary sponge kidney Follows with urology Protruded lumbar disc Surgical History History of bunionectomy History of cataract surgery bilat History of colonoscopy History of lithotripsy History of right hip replacement History of tonsillectomy Hx of lumpectomy left with marker Family History Other No significant family history Social History Smoking Status: Never smoker Second Hand Exposure: No; Do You Dip or Chew Tobacco: No; Hx Alcohol Use: Yes Alcohol type: wine Hx Substance Use: No Preferred Language: Senegalese Communication Ability: Effective Taker Off Braker Machine Required: No Beliefs That Will Affect Care: None Current Living Situation: Alone Feels Safe at Home: Yes Safety Concerns: Feels Safe At This Time Assistive Devices: Glasses Review of Systems Review of Systems: See HPI Physical Exam Physical Exam: The patient is awake, alert and oriented 3, well developed and well nourished, normocephalic and atraumatic, in no acute distress. Non-toxic appearing. HEENT- EOMI, mucous membranes moist. Hearing grossly intact. Heart-normal S1 and S2. No murmurs, rubs or gallops. Lungs-clear bilaterally, no respiratory distress, no accessory muscle use. Abdomen-normal bowel sounds and soft. No ascites noted. Non-tender. Extremities- no clubbing, cyanosis, or edema. Rheumatologic-right shoulder in sling. Psychiatric-normal affect. Results & Data Results & Data Vital Signs (Past 12 Hours) Vital Signs Temp Pulse Pulse Resp BP BP Pulse Ox 07/15/24 22:00 78 21 116/56 L 97 07/15/24 20:59 90 26 H 152/68 H 93 07/15/24 20:58 91 H 07/15/24 20:07 98 H 24 182/92 H 95 07/15/24 20:07 89 L 07/15/24 19:58 36.8 C 99 H 26 H 180/97 H 95 O2 Del Method O2 Flow Rate 07/15/24 22:00 Nasal Cannula 2 07/15/24 20:59 Nasal Cannula 2 07/15/24 20:58 07/15/24 20:07 Nasal Cannula 2 07/15/24 20:07 Room Air 07/15/24 19:58 Room Air Laboratory Results Viewed CBC and CMP ordered magnesium Diagnostic Findings CXR and chest CT Medications Administered EDDuoNeb AdmissionUnasyn 3G IV Code Status & VTE Plan Code Status full code VTE Prophylaxis Plan VTE Prophylaxis will be ordered: Yes Supervising Physician Co-Signing Physician Notes Attending addendum: I have physically seen this patient, have supervised the NORMAN's activities, and agree with the H&P unless as otherwise noted. Assessment and Plan: The patient is a 78-year-old female with past medical history including hypertension, hyperlipidemia, breast cancer status post lumpectomy and radiation, right rotator cuff tear status post shoulder replacement surgery 07/13. She presents to the emergency department with shortness of breath, dyspnea on exertion that developed status post surgery on right shoulder on 07/13/2024. Chest x-ray in emergency department this evening suggestive of right middle lobe infiltrate, likely aspiration. She was found to be 85% pulse ox on room air. [facility] and treatment of probable aspiration pneumonitis. #Right middle lobe aspiration pneumonitis with mild hypoxia- Suspect aspiration during procedure CTA PE protocol shows findings consistent with right middle lobe aspiration MRSA swab ordered. Add MRSA coverage of positive Unasyn 3 g IV every 6 hours DuoNebs 4 times daily, and every 2 hours as needed Incentive spirometry Aspiration precautions, but not likely a continuous event Nasal cannula oxygen, titrate to keep pulse ox around 94% Status post right shoulder surgery- Reports doing well status post surgery on 07/13 Tylenol, Toradol and oxycodone in sequence as needed Chronic stable diagnoses: Hypertension continue metoprolol, holding losartan and HCTZ Hyperlipidemia-continue rosuvastatin Breast CA s/p lumpectomy and radiation in 2014 PG Care Time/CCT Total # of Minutes Spent Total Time Spent with Patient: Total time spent is greater than 50% in coordination of care (as documented) at patient's floor/unit and/or counseling patient: Coding Level of Care Code 08924 INT INP/OBS CARE MIN Diagnoses Aspiration pneumonia J69.0 Acute hypoxic respiratory failure J96.01 Status post reverse total replacement of right shoulder Z96.611
[2024-07-15] MEDS: AMPICILLIN/SULBACTAM SOD 3,000 MG/100 ML BAG IV STA (22:46)
[2024-07-15] MEDS ORDERED: ALBUT/IPRATROP 3MG/0.5MG NEB 3 ML VIAL NEB PRN (23:28)
[2024-07-15] MEDS ORDERED: DOCUSATE SODIUM 100 MG CAP PO PRN (23:28)
[2024-07-15] MEDS ORDERED: oxyCODONE HCL IR 5 MG TAB (IMMEDIATE RELEASE) PO PRN (23:28)
[2024-07-15] MEDS ORDERED: KETOROLAC TROMETHAMINE 10 MG TABLET PO PRN (23:28)
[2024-07-15] MEDS ORDERED: BENZONATATE 100 MG CAPSULE PO PRN (23:28)
[2024-07-15] MEDS ORDERED: MELATONIN 3 MG TAB PO PRN (23:28)
[2024-07-15] MEDS ORDERED: ONDANSETRON INJ 2 MG/ML 2 ML VIAL IV PRN (23:28)
[2024-07-15] MEDS: ALBUT/IPRATROP 3MG/0.5MG NEB 3 ML VIAL NEB SCH (23:54)
[2024-07-16] MEDS: AMPICILLIN/SULBACTAM SOD 3,000 MG/100 ML BAG IV SCH (04:57)
[2024-07-16] MEDS: ALBUT/IPRATROP 3MG/0.5MG NEB 3 ML VIAL NEB SCH (07:11)
[2024-07-16 08:22] VITALS: TEMP 98.1
[2024-07-16] MEDS: ACETAMINOPHEN 325 MG TAB PO PRN (08:44)
--- NOTE | 2024-07-16 11:40 | Discharge Summary ---
Discharge Summary Date of Service July 16, 2024 Principal Dx & Hospital Course #1 = Principal Diagnosis (1) Aspiration pneumonia: (2) Acute hypoxic respiratory failure: (3) Status post reverse total replacement of right shoulder: (4) Atelectasis: Plan Patient is a 78-year-old female with past medical history of hypertension, hyperlipidemia, breast cancer s/p lumpectomy and radiation, with recent right shoulder rotator cuff tear s/p shoulder replacement 07/13. She presented to the ED due to dyspnea on exertion that has been prevalent since her procedure. She did not have any vomiting during or after/since her surgery. She was hypoxic with ambulation to 85% on room air in the ER. Chest x-ray initially showed concern for aspiration pneumonia. CT angiogram the chest was negative for PE and pneumonia but did show some atelectasis in the lingula and right lower lobe, no evidence of diaphragmatic paralysis. She did have a nerve block to the shoulder and there was some possible concern for phrenic nerve paralysis. She was admitted for treatment of aspiration pneumonia, atelectasis and treated with supplemental O2. # Acute respiratory failure with hypoxemia/possible aspiration pneumonitis/atelectasis/possible resolved phrenic nerve paralysis-she is afebrile, no leukocytosis, minimal cough. She was weaned to room air at rest and with ambulation prior to discharge. She received 2 doses of IV Unasyn during admission as well as nebulized bronchodilators. She felt much improved and was stable for discharge A 2 step walk test was performed and she did not require supplemental O2 -Continue home cefadroxil that she is on for her shoulder and add metronidazole x 4 more days for anaerobic coverage in case of aspiration (she reports Augmentin makes her very nauseated) -Encouraged incentive spirometry at home #Recent right total shoulder arthroplasty-S/p right shoulder replacement 07/[address] Valdez. Doing well from the standpoint -Follow-up with orthopedics and continue to follow activity restrictions as per orthopedics -Tylenol or ibuprofen as needed for pain, she has oxycodone but is not using it -Continue bowel regimen as needed with ajbz-ofb-exjxmuw laxatives -Has outpatient PT established #HTNblood pressures are mildly elevated -Continue metoprolol, and can resume losartan and HCTZ with acute infection #HLDcontinue rosuvastatin MWF #Breast cancers/p lumpectomy and radiation 2014. No acute issues VTE ppx: SCDs Dispo: Discharge to home Notes For Next Care Provider Medication Changes From Visit Added metronidazole 500 mg p.o. twice daily x 4 days Admission HPI Per Admitting Provider Patient is a 78-year-old female with past medical history of hypertension, hyperlipidemia, breast cancer s/p lumpectomy and radiation right shoulder rotator cuff tear s/p shoulder replacement 07/13. She presented to the ED due to dyspnea on exertion that has been prevalent since her procedure and worsening tonight. She was found to have aspiration pneumonia of her right middle lobe. She was hypoxic with ambulation noted to be 85% on room air. She is being admitted for aspiration pneumonitis requiring IV antibiotics and oxygen via nasal cannula. Patient seen at bedside with her son present. She is very pleasant. She stated she has had shortness of breath on exertion since her procedure however is much worse tonight she started to get concerned. She thought it might have been that phrenic nerve block that she received however this has been ongoing for several days. She also endorses a dry cough and wheezing at the end of her breaths. She denies any fevers, chills, dizziness, lightheadedness, chest pain. Her shoulder is doing well, she has minimal pain and it is controlled with Tylenol and ibuprofen at home. She denies past smoking history or history of previous lung disorders. She took all of her home medications today including evening medications. She was prescribed cefadroxil postop prophylaxis. She wishes to be full code. 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 She has been trying to use her incentive spirometry at home without success due to the dyspnea. DuoNeb in the ED significantly helped her symptoms, will continue. Discharge Exam Constitutional WD/WN, vitals as above Neck trachea midline, no thyromegaly Respiratory normal respiratory effort Auscultation: + crackles (Right lower lung field); no rhonchi and no wheezes Cardiovascular RRR, no murmur, no edema Chest (Breasts) Chest: normal inspection of chest Gastrointestinal (Abdomen) normal bowel sounds, soft, nontender, no hepatosplenomegaly Musculoskeletal Extremities: + extremities abnormal to inspection (RUE in sling, dressing on shoulder CDI) Skin no rashes, warm and dry Neurologic moves all extremities and awake; no focal motor deficits Psychiatric A+Ox3, euthymic affect Lymphatic no lymphedema Discharge Plan Discharge Items Patient Disposition: Home - Self-Care Reason For Visit: ASPIRATION PNEUMONIA, HYPOXIA Discharge Diagnosis: Aspiration pneumonitis Atelectasis Hypoxia-resolved Condition on Discharge: Good Activity: Resume your previous activity Non-emergency contact: Primary Care Provider and Surgeon Call non-emergency contact if: you have any medication questions and your symptoms worsen Follow-up/Referrals: Suleman Kraft [Primary Care Provider] - 07/29/24 2:00 pm (Follow-up within 1 to 2 weeks. Hospital follow up scheduled on 07/29/24 at 2:00) Diet: Heart Healthy Addtl Attending Provider Instructions: Please finish out 4 more days of an antibiotic called metronidazole 500 mg by mouth twice a day. This is to be taken in addition to your cefadroxil which you are taking for your shoulder. These antibiotics together will treat you in case of pneumonia. Please continue to use the incentive spirometer 10 times an hour while awake. Pending Studies at Discharge: No Stand-Alone Forms: [facility] Medications and DC Order Prescriptions: New metronidazole 500 mg tablet 500 mg PO BID Qty: 8 0RF Continued multivitamin Tablet 1 tab PO QAM metoprolol succinate 50 mg tablet extended release 24 hr 50 mg PO HS rosuvastatin 10 mg tablet 10 mg PO 3XWK Patient Comments: M/W/F Rx Instructions: MONDAYS, WEDNESDAYS, AND FRIDAYS [facility] Plus Lutein 1,000 unit-200 mg-60 unit-2 mg Tablet 1 tab PO QAM cholecalciferol (vitamin D3) [Vitamin D3] 2,000 unit Capsule 5,000 unit PO QAM omega 1-jrg-fla-fish oil [Fish Oil] 1,000 mg (120 mg-180 mg) Capsule 1 cap PO QAM losartan-hydrochlorothiazide 100-12.5 mg Tablet 1 tab PO QAM coenzyme Q10 [Co Q-10] 100 mg Capsule 100 mg PO DAILY cefadroxil 500 mg capsule 500 mg PO BID 10 Days Qty: 20 0RF oxycodone 5 mg tablet 5 mg PO Q6H PRN (Reason: pain) Qty: 30 0RF Discharge Orders: Discharge Order (Routine); Ordered 07/16/24 Ordered By: Audrey Alexandre Admission Data Admit Date/Time: 07/15/24 22:50 Attending Provider: Audrey Alexandre Admit Provider: William Swanson Primary Care Provider: Suleman Kraft Other Providers: William Swanson Hospital Stay Data Consultations 07/15/24 21:51 ED Decision to Admit Stat Diagnostic Imagining Performed 07/15/24 20:17 CT angio chest PE protocol Stat Pending Results Patient Have Any Pending Studies at Discharge: No Discharge Instructions Given to Patient (Per Discharging Provider) Please finish out 4 more days of an antibiotic called metronidazole 500 mg by mouth twice a day. This is to be taken in addition to your cefadroxil which you are taking for your shoulder. These antibiotics together will treat you in case of pneumonia. Please continue to use the incentive spirometer 10 times an hour while awake. Total Time Total Time Spent Total Time Spent (In Minutes): 35 minutes Total Time Includes: Examination of the Patient, Discharge Planning and Medication Reconciliation Coding Level of Care Code 34557 INP/OBS DISCH >30 MIN Diagnoses Aspiration pneumonia J69.0 Acute hypoxic respiratory failure J96.01 Status post reverse total replacement of right shoulder Z96.611 Atelectasis J98.11
[2024-07-16 12:09] VITALS: BP 119/73
--- NOTE | 2024-07-16 12:15 | Electrocardiogram Report ---
Test Reason : Blood Pressure : */* mmHG Vent. 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 lead placement vs. LVH Abnormal ECG When compared with ECG of 23-Jun-2024 13:46, No significant change was found Confirmed by Juan F Mercado ([id number]) on 07/16/2024 12:15:13 PM Referred By: REFERRED SELF Confirmed By: Juan F Mercado
[2024-07-16] MEDS: CHOLECALCIFEROL 125 MCG (5,000 UNITS) TAB PO SCH (12:36)
[2024-07-16] MEDS: MULTIVITAMIN TAB PO SCH (12:36)
[2024-07-16] MEDS: LOSARTAN POTASSIUM 50 MG TAB PO SCH (12:36)
[2024-07-16] MEDS: hydroCHLOROthiazide 25 MG TAB PO SCH (12:36)
[2024-07-16 13:18] VITALS: PULSE 63; RESP 18; O2SAT 94
[2024-07-16] MEDS ORDERED: METOPROLOL SUCC 50MG EXT REL TAB PO SCH (21:00)
[2024-07-17] MEDS ORDERED: ROSUVASTATIN CALCIUM 10 MG TAB PO SCH (09:00)
== END 2024-07-16 13:38 | disposition home or self-care (01) | DRG 189 ==
LOC: ED 19:55 → EDINP 22:50 → INTOOBSV 22:50 → SUATTDRO 22:50 → 4W 23:29